=== PATIENT | male | born 1965 | race Caucasian/White ===

== ENCOUNTER 2023-08-10 07:30 | Emergency (ER) | payer OTHER, SELFPAY ==
[2023-08-10] VITALS (8 sets, daily range): BP systolic 102–129; BP diastolic 66–83; BMI 26.4
[2023-08-10 08:08] LABS: % Basophils 1.1 % (0-2); % Eosinophils 6.5 % (0-6); % Immature Granulocytes 0.6 % (0-0.5); % Lymphocytes 16.9 % (20.5-51.1); % Monocytes 10.6 % (1.7-9.3); % Neutrophils 64.3 % (42.2-75.2); Absolute Basophils 0.1 10^3/uL (0-0.2); Absolute Eosinophils 0.5 10^3/uL (0-0.7); Absolute Lymphocytes 1.2 10^3/uL (1.2-3.4); Absolute Monocytes 0.8 10^3/uL (0.1-0.6); Absolute Neutrophils 4.7 10^3/uL (1.4-6.5); Hematocrit 44.4 % (39.0-52.0); Hemoglobin 15.1 g/dL (13.0-18.0); Mean Corpuscular Hgb 30.4 pg (27.0-31.0); Mean Corpuscular Volume 89.3 fL (80.0-94.0); Mean Platelet Volume 9.7 fL (7.4-10.4); Nucleated Red Blood Cells % 0 % (-); Platelet Count 251 10^3/uL (130-400); Red Blood Cell Count 4.97 10^6/uL (4.70-6.10); Red Cell Dist. Width 12.5 % (11.5-14.5); White Blood Cell Count 7.3 10^3/uL (4.8-10.8)
--- NOTE | 2023-08-10 08:11 | ED.GENMED ---
History of Present Illness
General
Chief Complaint: Abdominal Pain
Source: patient
Exam Limitations: none
Time Seen by Provider: 08/10/23 07:39
Nursing documentation reviewed up to this point in time: agreed with
Travel History
Have you had any contact with someone who has COVID-19?: No
Do you have any symptoms of coronavirus? Fever > 100 degrees, chills, cough, shortness of breath, sore throat, loss of taste or smell, muscle aches, or headache?: No
History of Present Illness
History of Present Illness:
58 y/o F with h/o UC, sleep apnea
followed by dr. mcmahon, h/o alcohol abuse
sent in by GI
has had 6 mo + of symptoms of pain, fatigue
pt has had Entyvio, several injections, most recent was in July but he did not respond. Patient is even had several rounds of steroids and even rectal steroids completed 2 weeks ago without improvement. Patient is tried keeping a food log and he
really limits what he eats as it is. He feels bloated and is having a little bit of discomfort with breathing. He sometimes feels some palpitations but is not overly short of breath or having chest discomfort. He just feels like he is bloated and
cannot take a full deep breath. Patient says he has not had any change to any of the symptoms over the last several weeks but he is here because he has reached out to his GI doctor yesterday who instructed him to come for imaging and labs and they
will decide on the next biologic to treat him with. They want a make sure that he does not have an acute infection or obvious complicating colitis findings on CT. Patient's not having any active bloody diarrhea. He goes anywhere from 3-6 times a
day. He is not having any fevers or chills, vomiting or nausea. Patient is able to tolerate food
Past History
Past History
ED Past Medical History: HTN, Seizures and Psychiatric
ED Past Surgical History: None
Social History
Tobacco: Non-smoker
Alcohol: Former
Drug: None
Personal:
Living: with family
Employment: Employed
Family History
Family History: Other (non-contributory for seizures; positive for MDD)
Review of Systems
Review of Systems
Allergies reviewed?: Yes
All Other Systems: Not applicable
Phy Exam
Physical Exam
Physical Exam:
GENERAL: Alert , in no apparent distress, looks overall very well
EYE: pupils equal and reactive
NECK: Supple
ENT: o/p clr, mmm.
CARDIAC: No murmurs, regular rate but slightly irregular, PVCs
LUNGS: Clear breath sounds bilaterally, no acute respiratory distress, no wheezes/rales/rhonchi
ABDOMEN: Soft, nondistended, soft without focal tenderness, no r/g, no cvat, normal bowel sounds
NEUROLOGICAL: Alert and oriented, no focal neuro deficits
SKIN: Warm and dry, skin intact.
MUSCULOSKELETAL: No edema, well perfused. neg karol's sign
PSYCH: Normal and appropriate interaction.
Course
Orders/Labs/Results
Orders:
Orders
08/10/23 07:55
C-Reactive Protein Urgent
Comment: ADD ON
CMP [Comprehensive Metabolic Panel] Urgent
Complete Blood Count/With Diff Urgent
Lipase Urgent
Magnesium Urgent
TSH Reflex To Free T4 Urgent
08/10/23 08:08
CT Abd/pel W Iv And Oral Contr Urgent
Comment:
Reason For Exam: UC, worsening pain, continued diarrhea, fatigue
Iohexol [Omnipaque] See Protocol PO NOW STA
08/10/23 08:09
Add On- LAB Urgent
Tests Added?: tsh reflex t4, mag
Electrocardiogram (*1) Urgent
Reason for Study: Palpitations
EKG- Treatment ONCE
08/10/23 08:18
Troponin I Urgent
08/10/23 08:28
Add On- LAB Urgent
Tests Added?: crp
08/10/23 10:17
Urinalysis Reflex To Culture Urgent
Date Specimen was Collected: 08/10/23
Time Specimen was Collected: 10:16
Urine Microscopic Reflex Cult Urgent
Abnormal Lab Results
08/10/23 08/10/23
07:55 10:17
Absolute Monos (auto) 0.8 H 10^3/uL
(0.1-0.6)
Immature Gran % 0.6 H %
(0-0.5)
Lymphocytes % 16.9 L %
(20.5-51.1)
Monocytes % 10.6 H %
(1.7-9.3)
Eosinophils % 6.5 H %
(0-6)
Leukocyte Esterase Rfl Trace A
(Negative)
Urine Bacteria (Reflex) Few A
(Negative)
08/10/23 07:55
08/10/23 07:55
Vital Signs
Initial and Last Documented VS:
Initial Vital Signs
Temp Pulse Resp BP Pulse Ox
97.9 F 81 16 119/76 100
08/10/23 07:34 08/10/23 07:34 08/10/23 07:34 08/10/23 07:34 08/10/23 07:34
Last Documented Vital Signs
Temp Pulse Resp BP Pulse Ox
97.9 F 52 13 109/77 99
08/10/23 07:34 08/10/23 13:00 08/10/23 13:00 08/10/23 13:00 08/10/23 13:00
MDM/Problems Addressed
Differential Diagnosis Includes:
Colitis, C. difficile, small bowel obstruction, bacterial overgrowth
MDM/Problems Addressed:
58-year-old male with a history of ulcerative colitis refractory to Entyvio and rounds of steroids presents for ongoing abdominal distention with some discomfort, frequent diarrhea etc. Patient says nothing is changed in the last couple of weeks
from his chronic symptoms that are just not getting better despite medications. He has been in touch with his GI who recommended he come in for imaging. Dr. Valerie mayes was aware of him coming though he is managed by Dr. ching. On exam the patient
really appears in no distress, he has some PVCs on the monitor but is not short of breath. His abdomen may be slightly distended but is overall very soft and has hyperactive bowel sounds without any tenderness.
His labs are very reassuring with a normal white count and hemoglobin, he is not dehydrated, his CRP is less than 5. I attempted stool studies but he was unable to give a sample. CT with p.o. contrast did not show any obvious colitis findings
however he had marked distention of his small bowel without an obvious obstruction. Patient is eating and drinking. I discussed this case with the GI attending and with the patient. He would prefer to go home. Via [place] text discussion Dr. Padilla
gerber recommended prednisone for 5 days but the patient had been on several rounds of steroids and is really apprehensive about another round. He would prefer to wait for 2 days and call his primary application performance engineer for further recommendations. He
feels comfortable going home. At this point he will also watch for any worsening signs of a advancing small bowel obstruction, vomiting, pain etc. and return as needed. Patient was given a copy of his CAT scan
*Critical Care Note
Total Time (30-74mins, 75-104mins- exclusive of procedures): Not Applicable
ED Attending Note
-
Portions of this chart may have been created with voice recognition software.� Occasional wrong word or��sound alike� substitutions may have occurred due to the inherent limitations of voice recognition software.
Discharge Plan
Departure
Patient Disposition: Home (Routine Discharge)
Date of Disposition: 08/10/23
Time of Disposition: 13:00
Patient with high blood pressure during this ER visit?: No
Condition: Fair
Covid-19: Not Applicable
Discharge Problem:
Abdominal distension
Instructions: Abdominal Pain
Prescriptions:
No Action
multivitamin Tablet
1 tab PO DAILY
amlodipine 5 mg Tablet
5 mg PO DAILY
flaxseed oil 1,000 mg Capsule
1,000 mg PO DAILY
B Complex Plus Vitamin C Tablet
1 tab PO DAILY
cholecalciferol (vitamin D3) [Vitamin D3] 25 mcg (1,000 unit) Tablet
25 mcg PO DAILY
mesalamine 1.2 gram Tablet,Delayed Release (Dr/Ec)
1.2 g PO BID
omega 5-zgv-wtr-fish oil [Fish Oil] 1,000 mg (120 mg-180 mg) Capsule
1 cap PO DAILY
Entyvio 300 mg Recon Soln
300 mg IV Q8W
Referrals:
Lucas Myers I., DO [Family Provider] -
Shannon Ching MD [Active] - Follow up in 5-7 days (gi)
Activity Restrictions/Additional Instructions:
Your CAT scan does not show any signs of obvious worsening of your colitis however you do have abdominal small bowel distention with a lot of gas. There is no obvious bowel obstruction. You were offered to be admitted but prefer to go home
you can speak with dr. Ching regarding your next treatment for yuor colitis
in the meantime, watch for worsening pain, passing out, fever, vomiting and return immediately
otherwise bland diet as tolerated
Interventions
Interventions:
*Risk Screen - Suicide Last Done: 08/10/23 07:57
*General Assessment Last Done: 08/10/23 07:57
*Neglect/Abuse Screening Last Done: 08/10/23 07:57
ED- Fall Risk Assessment Last Done: 08/10/23 07:57
*ED COVID-19 Vaccine History Last Done: 08/10/23 07:34
*Nursing Disposition Last Done: 08/10/23 13:21
LX-Grvoxc-Gywmyusgvk Assessment Last Done: 08/10/23 07:57
Discharge Date and Time
Discharge Date/Time: 08/10/23 13:21
Print Language: EQUATORIAL GUINEAN
[2023-08-10] MEDS: OMNIPAQUE 50 ML PO (08:29)
[2023-08-10 08:35] LABS: ALT (SGPT) 24 U/L (0-50); AST (SGOT) 31 U/L (17-59); Albumin 4.7 g/dl (3.5-5.0); Alkaline Phosphatase 65 U/L (38-126); Blood Urea Nitrogen 10 mg/dl (9-20); Calcium 9.5 mg/dl (8.4-10.2); Carbon Dioxide 23 mmol/L (22-30); Chloride 105 mmol/L (98-107); Estimated Creatinine Clearance 117 ml/min; Glucose 83 mg/dl (70-99); Lipase 57 U/L (23-300); Magnesium 2.2 mg/dl (1.6-2.3); Potassium 4.2 mmol/L (3.5-5.1); Sodium 137 mmol/L (135-145); Total Bilirubin 0.8 mg/dl (0.2-1.3); Total Protein 7.3 g/dl (6.3-8.2); eGFR > 60.00
[2023-08-10 08:46] LABS: Troponin I < 0.012 ng/ml
[2023-08-10 09:03] LABS: TSH Reflex To Free T4 0.62 uIU/ml (0.47-4.68)
[2023-08-10 09:33] LABS: C-Reactive Protein < 5.00 mg/L (0.0-10.00)
[2023-08-10 10:30] LABS: Urine Albumin Negative (Neg - Trace); Urine Bilirubin Negative (Negative); Urine Character Clear (Clear); Urine Color Yellow; Urine Glucose Negative (Negative); Urine Ketone Negative (Negative); Urine Leukocyte Trace (Negative); Urine Nitrite Negative (Negative); Urine Occult Blood Negative (Negative); Urine Specific Gravity 1.005 (<1.030); Urine Urobilinogen Negative (Neg - 1+)
[2023-08-10 10:41] LABS: Urine Bacteria Few (Negative); Urine Red Blood Cell 0-2 /HPF (0-2); Urine White Cell 0-2 /HPF (0-5)
== END 2023-08-10 13:21 | disposition home or self-care (01) ==
LOC: EMR 07:30
PROVIDERS: Physician Assistant; EMERGENCY PHYSICIAN Emergency Medicine; FAMILY PHYSICIAN Internal Medicine
DX: R14.0 Abdominal distension (gaseous) (principal); R10.9 Unspecified abdominal pain; R00.2 Palpitations; R53.83 Other fatigue; K51.90 Ulcerative colitis, unspecified, without complications; G47.30 Sleep apnea, unspecified; I10 Essential (primary) hypertension; R56.9 Unspecified convulsions; F10.11 Alcohol abuse, in remission; F41.9 Anxiety disorder, unspecified; F17.220 Nicotine dependence, chewing tobacco, uncomplicated
CPT/HCPCS: 99285; 74177; 80053; 81003; 81015; 83690; 83735; 84443; 84484; 85025; 86140; 93005; Q9967

== ENCOUNTER → 2023-11-04 07:54 | Outpatient (REF) | payer SELFPAY | LOC: HWRAD 07:54 | PROVIDERS: ATTENDING PHYSICIAN Internal Medicine | DX: I10 Essential (primary) hypertension (principal); E78.2 Mixed hyperlipidemia | CPT/HCPCS: 75571 ==

== ENCOUNTER 2024-03-04 06:18 | Day surgery (SDC) | payer OTHER, SELFPAY | END 2024-03-04 10:09 | disposition home or self-care (01) | LOC: GI 06:18 | PROVIDERS: ATTENDING PHYSICIAN Internal Medicine Gastroenterology | DX: R10.13 Epigastric pain (principal); K44.9 Diaphragmatic hernia without obstruction or gangrene; K29.70 Gastritis, unspecified, without bleeding; K51.50 Left sided colitis without complications; K52.9 Noninfective gastroenteritis and colitis, unspecified; K62.89 Other specified diseases of anus and rectum; Z87.19 Personal history of other diseases of the digestive system | CPT/HCPCS: 43239; 45331; 88305; 88342 ==

== ENCOUNTER 2024-04-23 07:35 | Emergency (ER) | payer OTHER, SELFPAY ==
[2024-04-23] VITALS (9 sets, daily range): BP systolic 117–139; BP diastolic 70–79; BMI 26.9
[2024-04-23 08:10] LABS: % Basophils 0.2 % (0-2); % Eosinophils 2.1 % (0-6); % Immature Granulocytes 0.4 % (0-0.5); % Lymphocytes 3.8 % (20.5-51.1); % Monocytes 5.9 % (1.7-9.3); % Neutrophils 87.6 % (42.2-75.2); Absolute Eosinophils 0.2 10^3/uL (0-0.7); Absolute Lymphocytes 0.4 10^3/uL (1.2-3.4); Absolute Monocytes 0.6 10^3/uL (0.1-0.6); Absolute Neutrophils 8.6 10^3/uL (1.4-6.5); Hematocrit 43.6 % (39.0-52.0); Hemoglobin 15.1 g/dL (13.0-18.0); Mean Corp Hgb Conc. 34.6 g/dL (33.0-37.0); Mean Corpuscular Hgb 29.8 pg (27.0-31.0); Mean Platelet Volume 9.5 fL (7.4-10.4); Nucleated Red Blood Cells % 0 % (-); Platelet Count 175 10^3/uL (130-400); Red Blood Cell Count 5.07 10^6/uL (4.70-6.10); Red Cell Dist. Width 12.5 % (11.5-14.5); White Blood Cell Count 9.8 10^3/uL (4.8-10.8)
--- NOTE | 2024-04-23 08:17 | ED.GENMED ---
History of Present Illness
General
Chief Complaint: Abdominal Symptoms
Source: patient
Exam Limitations: none
Time Seen by Provider: 04/23/24 08:05
History of Present Illness
History of Present Illness:
See MDM
Past History
Past History
ED Past Medical History: HTN, Seizures and Psychiatric
ED Past Surgical History: None
Social History
Tobacco: Non-smoker
Alcohol: Former
Drug: None
Personal:
Living: with family
Employment: Employed
Family History
Family History: Other (non-contributory for seizures; positive for MDD)
Phy Exam
Physical Exam
Physical Exam:
See MDM
Course
Orders/Labs/Results
Orders:
Orders
04/23/24 07:53
Complete Blood Count/With Diff Urgent
Comprehensive Metabolic Panel Urgent
Lipase Urgent
04/23/24 08:16
CT Abd/pel W Iv And Oral Contr Urgent
Comment: hx colitis
Reason For Exam: general abd pain
0.9% Sodium Chloride 1000 ml [Nss] 1,000 ml IV BOLUS
Iohexol [Omnipaque] See Protocol PO NOW STA
Morphine Sulfate 4 mg IV NOW STA
Ondansetron Injectable [Zofran] 4 mg IV NOW STA
Abnormal Lab Results
04/23/24
07:53
Absolute Neuts (auto) 8.6 H 10^3/uL
(1.4-6.5)
Absolute Lymphs (auto) 0.4 L 10^3/uL
(1.2-3.4)
Neutrophils % 87.6 H %
(42.2-75.2)
Lymphocytes % 3.8 L %
(20.5-51.1)
Sodium 132 L mmol/L
(135-145)
Chloride 97 L mmol/L
(98-107)
Carbon Dioxide 19 L mmol/L
(22-30)
Glucose 122 H mg/dl
(70-99)
AST 67 H U/L
(17-59)
ALT 56 H U/L
(0-50)
04/23/24 07:53
04/23/24 07:53
Vital Signs
Initial and Last Documented VS:
Initial Vital Signs
Temp Pulse Resp BP Pulse Ox
99.0 F 111 16 131/79 98
04/23/24 07:37 04/23/24 07:37 04/23/24 07:37 04/23/24 07:37 04/23/24 07:37
Last Documented Vital Signs
Temp Pulse Resp BP Pulse Ox
99.0 F 87 21 126/77 94
04/23/24 07:37 04/23/24 12:30 04/23/24 12:30 04/23/24 12:00 04/23/24 12:30
MDM/Problems Addressed
Differential Diagnosis Includes:
HPI and MDM Narrative:
58-year-old male presenting for evaluation of generalized abdominal pain. He is unsure if this is related to his ulcerative colitis or potentially a new supplement he is taking called CurQD. He does complain of diarrhea and has been dark diarrhea
over the past few days. He states recent negative endoscopy. He denies a history of stomach ulcers. He is not taking NSAIDs. He is not on blood thinners
Fortunately, given his prior history, it is tough to differentiate between ulcerative colitis flare versus other intra-abdominal pathology. Because of this, will obtain CT abdomen/pelvis with IV and oral contrast
Physical exam
General: Well appearing and non-toxic
HEENT: protecting airway. Mildly dry mucous membrane
Neck: appears supple
CV: No evidence of cyanosis
Resp: No accessory muscle use
Abd: Non-distended. Vague generalized tenderness without rebound
Extremities: No deformities
Neuro: alert
Psych: Normal affect
Skin: Intact
Problems Addressed including Acute and Chronic Conditions affecting care:
1. Abdominal pain
Acuity: acute
Prognosis: stable
Details: Given his history, will obtain CT. Will give IV fluids for dehydration and will give morphine mild pain
Updates
CT consistent with sort of colitis flare. There is concern for a mass in his colon as well. However, colonoscopy done 2 years ago did not show a mass. Patient states he will not take steroids. Will send his information to the GI office front
desk [place] text chain to help expedite follow
Differential Diagnosis (but not limited to): Ulcerative colitis, early appendicitis, gastritis
Testing considered: Stool sample
Drug therapy (if applicable): OTC meds, please see d/c instruction regarding Rx drugs
Amount and/or Complexity of Data Reviewed
Clinical info obtained from: Patient
External data reviewed: Multiple prior episodes of ulcerative colitis flareups. Patient is hesitant to be placed back on steroids
Labs I independently reviewed (but not limited to): N/A
Radiology: The CT scan was personally and independently reviewed. In addition, official CT report reviewed.
Pulse Ox: not hypoxic
EKG independently reviewed: N/A
Respiratory Services Manager: N/A
Critical Care: N/A
Risk of Complication:
Social Determinants of health: Good social support
Discussed with other providers: N/A
Escalation of Care includes Admit/Obs: After being observed in the Emergency Department, pt stable for discharge.
Occasional wrong word or 'sound a like' substitutions may have occurred due to the inherent limitations of voice recognition software. Read the chart carefully and recognize, using context, where substitutions have occurred.
*Critical Care Note
Total Time (30-74mins, 75-104mins- exclusive of procedures): Not Applicable
ED Attending Note
-
Portions of this chart may have been created with voice recognition software.� Occasional wrong word or��sound alike� substitutions may have occurred due to the inherent limitations of voice recognition software.
Discharge Plan
Departure
Patient Disposition: Home (Routine Discharge)
Date of Disposition: 04/23/24
Time of Disposition: 13:35
Patient with high blood pressure during this ER visit?: No
Discharge Problem:
Ulcerative colitis, acute
Prescriptions:
No Action
multivitamin Tablet
1 tab PO DAILY
amlodipine 5 mg Tablet
5 mg PO DAILY
flaxseed oil 1,000 mg Capsule
1,000 mg PO DAILY
B Complex Plus Vitamin C Tablet
1 tab PO DAILY
cholecalciferol (vitamin D3) [Vitamin D3] 25 mcg (1,000 unit) Tablet
25 mcg PO DAILY
mesalamine 1.2 gram Tablet,Delayed Release (Dr/Ec)
1.2 g PO BID
omega 4-nyf-uck-fish oil [Fish Oil] 1,000 mg (120 mg-180 mg) Capsule
1 cap PO DAILY
Entyvio 300 mg Recon Soln
300 mg IV Q8W
Referrals:
Lucas Myers I., DO [Family Provider] -
Activity Restrictions/Additional Instructions:
Please return for any worsening symptoms.
You may return at any time if you have further concerns.
Please follow up with your doctor at the first available appointment, preferably this week.
I sent a message to the GI office. They will reach out to Dr. Littlejohn to see if he wants to expedite follow-up.
Thank you for choosing [facility].
Interventions
Interventions:
*Risk Screen - Suicide Last Done: 04/23/24 07:37
*General Assessment Last Done: 04/23/24 07:47
*Neglect/Abuse Screening Last Done: 04/23/24 07:37
ED- Fall Risk Assessment Last Done: 04/23/24 07:47
*ED COVID-19 Vaccine History Last Done: 04/23/24 07:47
MB-Lozdfk-Wzyajieeaj Assessment Last Done: 04/23/24 07:47
Discharge Date and Time
Print Language: ITALIAN
[2024-04-23 08:19] LABS: ALT (SGPT) 56 U/L (0-50); AST (SGOT) 67 U/L (17-59); Albumin 4.4 g/dl (3.5-5.0); Alkaline Phosphatase 82 U/L (38-126); Blood Urea Nitrogen 13 mg/dl (9-20); Calcium 8.5 mg/dl (8.4-10.2); Carbon Dioxide 19 mmol/L (22-30); Chloride 97 mmol/L (98-107); Estimated Creatinine Clearance 117 ml/min; Glucose 122 mg/dl (70-99); Lipase 39 U/L (23-300); Potassium 3.7 mmol/L (3.5-5.1); Sodium 132 mmol/L (135-145); Total Bilirubin 0.9 mg/dl (0.2-1.3); Total Protein 7.2 g/dl (6.3-8.2); eGFR > 60.00
[2024-04-23] MEDS: NSS 1000 IV (08:22)
[2024-04-23] MEDS: OMNIPAQUE 50 ML PO (08:22)
[2024-04-23] MEDS: ZOFRAN 4 MG IV (08:22)
[2024-04-23] MEDS: MORPHINE SULFATE 4 MG IV (08:23)
== END 2024-04-23 14:06 | disposition home or self-care (01) ==
LOC: EMR 07:35
PROVIDERS: Emergency Medicine; EMERGENCY PHYSICIAN Student in an Organized Health Care Education/Training Program; FAMILY PHYSICIAN Internal Medicine
DX: K51.90 Ulcerative colitis, unspecified, without complications (principal); I10 Essential (primary) hypertension
CPT/HCPCS: 99284; 74177; 80053; 83690; 85025; Q9967

== ENCOUNTER → 2024-06-27 10:17 | Outpatient (REF) | payer OTHER, SELFPAY | LOC: RCS 10:17 | PROVIDERS: ATTENDING PHYSICIAN Internal Medicine | DX: Z51.81 Encounter for therapeutic drug level monitoring (principal) | CPT/HCPCS: 93005 ==